=== PATIENT | female | born 1955 ===

== ENCOUNTER 2024-10-21 08:40 | Day surgery (SDC) | payer OTHER ==
[2024-10-08 11:41] VITALS: BP 144/81
[~2024-10-21] VITALS: Ht 157.5 cm; Wt 79.4 kg
[~2024-10-21 08:40] MED LIST: COZAAR50 MG PO; LIPITOR20 MG PO; NORVASC5 MG PO
[2024-10-21] MEDS ORDERED: CEFAZOLIN SODIUM 1,000 MG VIAL ONE (10:26)
[2024-10-21] MEDS ORDERED: CHLORHEXIDINE GLUCONATE 120 ML BOTTLE TOP ONE (12:22)
[2024-10-21] MEDS ORDERED: LIDOCAINE HCL 2% 20ML VIAL IJ ONE (13:35)
[2024-10-21] MEDS ORDERED: GENTAMICIN SULFATE 40 MG/ML VIAL ONE ×2 (13:35→13:37)
[2024-10-21] MEDS ORDERED: LIDOCAINE HCL 1% 20 ML VIAL IJ ONE (13:37)
[2024-10-21] MEDS ORDERED: LIDOCAINE HCL 1% 10ML VIAL ONE (13:37)
[2024-10-21] MEDS ORDERED: CEFAZOLIN SODIUM 1,000 MG VIAL IV ONE (14:45)
[2024-10-21] MEDS ORDERED: CEPHALEXIN250 MG PO (14:46)
[2024-10-21] MEDS ORDERED: TRAM1TAB98 PO (14:47)
== END 2024-10-21 17:20 | disposition home or self-care (01) ==
LOC: CIR.AMB 08:40
PROVIDERS: ATTEND Obstetrics & Gynecology Gynecology
DX: N32.81 Overactive bladder (principal); N39.41 Urge incontinence; R15.9 Full incontinence of feces
CPT/HCPCS: 64581; 64590; 95972; C1767; C1778